=== PATIENT | male | born 1955 | race Caucasian/White ===

== ENCOUNTER 2021-09-09 18:05 | Inpatient (IN) | payer BC, OTHER ==
[2021-09-09 18:19] VITALS: BMI 23.9
[2021-09-09] MEDS ORDERED: METHOCARBAMOL 500 MG TABLET PO PRN (18:58)
[2021-09-09] MEDS ORDERED: ACETAMINOPHEN 325 MG TABLET (FP) PO PRN ×2 (18:58)
[2021-09-09] MEDS ORDERED: DICYCLOMINE HCL 10 MG CAPSULE PO PRN (18:58)
[2021-09-09] MEDS ORDERED: BENZOCAINE/MENTHOL (CHLORASEPTIC ) LOZENGE MM PRN (18:58)
[2021-09-09] MEDS ORDERED: MAGNESIUM CITRATE 300 ML BOTTLE PO PRN (18:58)
[2021-09-09] MEDS ORDERED: LOPERAMIDE HCL 2 MG CAPSULE PO PRN (18:58)
[2021-09-09] MEDS ORDERED: ONDANSETRON *ODT* 4 MG TABLET SL PRN (18:58)
[2021-09-09] MEDS ORDERED: IBUPROFEN 600 MG TABLET (FP) PO PRN (18:58)
[2021-09-09] MEDS ORDERED: MAG HYDROX/AL HYDROX/SIMETH 30 ML UNIT-DOSE CUP PO PRN (18:58)
[2021-09-09] MEDS ORDERED: BISMUTH SUBSALICYLATE 524 MG/30 ML PO PRN (18:58)
[2021-09-09] MEDS ORDERED: MAGNESIUM HYDROX 2400MG/30ML ORAL SUSPENSION 30 ML CUP PO PRN (18:58)
[2021-09-09] MEDS ORDERED: IBUPROFEN 400 MG TABLET (FP) PO PRN (18:58)
[2021-09-09] MEDS: MELATONIN 5 MG TABLETS PO SCH (22:21)
[2021-09-09] MEDS: THIAMINE HCL 100 MG TABLET (FP) PO SCH (22:21)
[2021-09-09] MEDS: hydrOXYzine PAMOATE 25 MG CAPSULE (FP) PO SCH (22:21)
[2021-09-10] MEDS: hydrOXYzine PAMOATE 25 MG CAPSULE (FP) PO SCH ×5 (06:19→22:38)
[2021-09-10] MEDS ORDERED: LORazepam 1 MG TABLET PO PRN (09:55)
[2021-09-10] MEDS: LORazepam 1 MG TABLET PO SCH ×3 (10:29→22:37)
[2021-09-10] MEDS: PRENATAL VITAMINS W/ FOLIC ACID TABLET (FP) PO SCH (10:30)
[2021-09-10 10:51] LABS: HEMATOCRIT 43.8 % (35.4-49); HEMOGLOBIN 15.1 GM/dL (11.7-16.9); MCH 34.5 pg (25.7-33.7); MCHC 34.5 g/dl (32.0-35.9); MEAN PLT VOLUME 9.3 fl (7.5-11.1); PLATELET COUNT 168 10^3/uL (134-434); RBC 4.38 M/mm3 (4.00-5.60); RDW 13.5 % (11.9-15.9); WHITE BLOOD COUNT 6.3 K/mm3 (4.0-10.0)
[2021-09-10 10:57] LABS: BLOOD UREA NITROGEN 12.3 mg/dL (7-18); CALCIUM 9.8 mg/dL (8.5-10.1)
[2021-09-10 10:58] LABS: ALBUMIN 4.7 g/dl (3.4-5.0)
[2021-09-10 11:00] LABS: CREATININE 0.8 mg/dL (0.55-1.3)
[2021-09-10 11:01] LABS: BILIRUBIN,TOTAL 1.8 mg/dL (0.2-1); TOT PROT 7.9 g/dl (6.4-8.2)
[2021-09-10] MEDS: THIAMINE HCL 100 MG TABLET (FP) PO SCH (22:38)
[2021-09-10] MEDS: MELATONIN 5 MG TABLETS PO SCH (22:38)
[2021-09-11] MEDS: LORazepam 0.5 MG TABLET PO SCH ×4 (05:32→22:10)
[2021-09-11] MEDS: hydrOXYzine PAMOATE 25 MG CAPSULE (FP) PO SCH ×5 (05:33→22:09)
[2021-09-11] MEDS: PRENATAL VITAMINS W/ FOLIC ACID TABLET (FP) PO SCH (10:36)
[2021-09-11] MEDS ORDERED: LORazepam 0.5 MG TABLET PO PRN (11:00)
[2021-09-11] MEDS: MELATONIN 5 MG TABLETS PO SCH (22:08)
[2021-09-11] MEDS: THIAMINE HCL 100 MG TABLET (FP) PO SCH (22:08)
[2021-09-12] MEDS ORDERED: LORazepam 0.5 MG TABLET PO ONE (05:00)
[2021-09-12] MEDS: hydrOXYzine PAMOATE 25 MG CAPSULE (FP) PO SCH ×5 (05:34→22:16)
[2021-09-12] MEDS: PRENATAL VITAMINS W/ FOLIC ACID TABLET (FP) PO SCH (10:12)
[2021-09-12] MEDS: metFORMIN HCL 500 MG TABLET (FP) PO SCH (10:12)
[2021-09-12 10:25] LABS: BILIRUBIN,DIRECT 0.8 mg/dL (0.0-0.2)
[2021-09-12 10:27] LABS: BILIRUBIN,TOTAL 2.2 mg/dL (0.2-1)
[2021-09-12] MEDS: LORazepam 1 MG TABLET PO SCH ×3 (12:06→22:17)
[2021-09-12] MEDS: THIAMINE HCL 100 MG TABLET (FP) PO SCH (22:16)
[2021-09-12] MEDS: MELATONIN 5 MG TABLETS PO SCH (22:16)
[2021-09-13] MEDS: hydrOXYzine PAMOATE 25 MG CAPSULE (FP) PO SCH ×5 (05:56→22:20)
[2021-09-13] MEDS: LORazepam 0.5 MG TABLET PO SCH ×4 (05:56→22:18)
[2021-09-13] MEDS: metFORMIN HCL 500 MG TABLET (FP) PO SCH (07:08)
[2021-09-13] MEDS: PRENATAL VITAMINS W/ FOLIC ACID TABLET (FP) PO SCH (10:15)
[2021-09-13] MEDS: THIAMINE HCL 100 MG TABLET (FP) PO SCH (22:18)
[2021-09-13] MEDS: MELATONIN 5 MG TABLETS PO SCH (22:18)
[2021-09-14] MEDS ORDERED: LORazepam 0.5 MG TABLET PO ONE (05:00)
[2021-09-14] MEDS: metFORMIN HCL 500 MG TABLET (FP) PO SCH (07:07)
[2021-09-14] MEDS: hydrOXYzine PAMOATE 25 MG CAPSULE (FP) PO SCH (07:07)
[2021-09-14 09:02] VITALS: BP 156/86; PULSE 76; TEMP 97.1
[2021-09-14 11:00] LABS: ALBUMIN 3.7 g/dl (3.4-5.0)
[2021-09-14 11:04] LABS: BILIRUBIN,DIRECT 0.6 mg/dL (0.0-0.2); BILIRUBIN,TOTAL 1.8 mg/dL (0.2-1)
[2021-09-14 11:05] LABS: TOT PROT 6.8 g/dl (6.4-8.2)
== END 2021-09-14 09:27 | disposition home or self-care (01) | DRG 897 ==
LOC: YASAS 18:05 → Y3N 20:01
PROVIDERS: ADMIT Allergy & Immunology; ATTEND Surgery
PROC: HZ2ZZZZ Detoxification Services for Substance Abuse Treatment (ICD-10-PCS; principal; 2021-09-09)
DX: F10.230 Alcohol dependence with withdrawal, uncomplicated (principal); E11.65 Type 2 diabetes mellitus with hyperglycemia; Z79.84 Long term (current) use of oral hypoglycemic drugs; R94.5 Abnormal results of liver function studies; Z87.891 Personal history of nicotine dependence
CPT/HCPCS: 36415; 80053; 80076; 82962; 84450; 84460; 85027; 86780; 87811; C9803-CS; U0003; U0005